=== PATIENT | female | born 1995 | race Caucasian/White ===

== ENCOUNTER 2024-05-02 17:40 | Emergency (ER) | payer SELFPAY ==
--- NOTE | ~2024-05-02 | CT_ITS ---
EXAMINATION: CT abdomen pelvis w con DATE: 05/02/2024 20:31 INDICATION: RUQ abd pain, n/v TECHNIQUE: Computed tomography (CT) of the abdomen and pelvis was performed with 100 mL Omnipaque-350 intravenous contrast. Automated exposure control and iterative reconstruction technique were employe d. The dose-length product was 185.11 mGy-cm. COMPARISON: Ultrasound abdomen, same date. FINDINGS: Lower thorax: Unremarkable Liver: Normal. Biliary/Gallbladder: Gallbladder is normal. No bile duct dilation. Pancreas: No mass or duct dilation. Spleen: Normal. Adrenals:No mass. Kidneys: No suspicious mass, obstructing stone, or hydronephrosis. GI tract: Mild distal esophageal and gastric wall edema No small or large bowel dilation. The appendi x is not confidently visualized and is presumably surgically absent Mesentery/Peritoneum: No ascites, mass, or free air. Retroperitoneum: No mass. Pelvis: Normal urinary bladder, bilateral ovaries, and uterus. Small volume deep pelvic fluid, within physiologic range. Soft Tissues: Soft tissues and body wall unremarkable. Bones: No acute osseous finding. IMPRESSION: Mild esophagitis/gastritis. Otherwise, no acute abdominopelvic process detected. Reviewed, dictated and finalized at location K.
--- NOTE | ~2024-05-02 | US_ITS ---
EXAMINATION: US abdomen limited DATE: 05/02/2024 20:52 INDICATION: RUQ pain, Positive Holland TECHNIQUE: Multiple grayscale and Doppler ultrasound images of limited portions of the abdomen were o btained. COMPARISON: CT abdomen pelvis, same date. FINDINGS: The visualized portions of the pancreas are normal. The liver is normal with normal echogen icity and echotexture. No surface nodularity. Normal hepatopetal flow in the main portal vein. The ga llbladder is normal size with no abnormal wall thickening, or pericholecystic fluid. Nonmobile, nonva scular, nonshadowing, round 4 mm echogenicity along the gallbladder wall. The common bile duct measur es 4 mm. There was no sonographic Holland sign. IMPRESSION: 4 mm intraluminal echogenicity in the gallbladder may represent adherent stone, sludge ball, or gallb ladder polyp. Positive sonographic Holland sign in the setting of an otherwise unremarkable appearing gallbladder. Reviewed, dictated and finalized at location K. IMPRESSION: 4 mm intraluminal echogenicity in the gallbladder may represent adherent stone, sludge ball, or gallbladder polyp. Positive sonographic Holland sign in the setting of an otherwise unremarkable ap pearing gallbladder.
--- NOTE | 2024-05-02 18:24 | ED.ABDPAIN ---
HPI - Abdominal Pain General Chief Complaint: Abdominal Pain <HELEN No Last Filed: 05/02/24 18:39> Stated Complaint: ABDOMINAL PAIN <HELEN No Last Filed: 05/02/24 18:39> Time Seen by Provider: 05/02/24 18:24 <HELEN No Last Filed: 05/02/24 18:39> Focused HPI: Patient is a 28 y/o female who presents to the ED with c/o upper abdominal pain. Patient reports pain began this morning, was mild at first, more severe over past couple hours. Present in epigastric region and RUQ. Worse with movement. Feels slightly better with sitting with her knees up to her chest. Patient has not taken anything for the pain. Reports N/V, urinary frequency. Denies dysuria, hematuria, diarrhea, constipation, fevers. Hx of kidney stone, but states current pain does not feel similar. Hx of liver failure 2 years ago, r/t alcoholism. Seen at [facility] at that time. Patient no longer drinks. Does not currently follow with GI. Denies hx of pancreatitis. GENERAL: Well-appearing, thin, and in no acute distress. HEAD: Normocephalic, atraumatic. CHEST: Clear to auscultation. ?No respiratory distress. HEART: Regular rate and rhythm.? ABD: TTP in epigastric region and RUQ. No rebound. NEURO: ?Alert and oriented x3. Patient screened in triage and initial orders placed.? ?Additional care and disposition to be based upon?diagnostic testing and treatment. <HELEN No Last Filed: 05/02/24 18:39> Source: patient <HELEN No Last Filed: 05/02/24 18:39> Mode of arrival: ambulatory <HELEN No Last Filed: 05/02/24 18:39> Limitations: no limitations <HELEN No Last Filed: 05/02/24 18:39> Related Data Allergies/Adverse Reactions: Allergies Allergy/AdvReac Type Severity Reaction Status Date / Time Penicillins Allergy Unknown Verified 05/02/24 19:50 <Ashley Tavarez PA-C - Last Filed: 05/02/24 18:39> Review of Systems Review of Systems: All systems as dictated in HPI <Ben Lares PA-C - Last Filed: 05/03/24 00:34> Exam Narrative: GENERAL: Well-appearing, well-nourished, and in no acute distress. HEAD: Normocephalic, atraumatic. EYES: PERRLA and EOMI. ENT: Nares clear, no rhinorrhea or epistaxis. Mucous membranes moist. Oropharynx without tonsillar hypertrophy exudate or other lesions. NECK: Supple. No adenopathy or masses. CHEST: No respiratory distress. Clear to auscultation. No wheezes rales or rhonchi HEART: Regular rate and rhythm. No murmur heard. Normal peripheral pulses. ABDOMEN: Holland sign positive. Negative flank tenderness bilaterally. Soft, otherwise nontender, nondistended, normal active bowel sounds. MSK: Normal range of motion. No edema. SKIN: Warm, dry, no rash. NEURO: Alert and oriented x4. No focal deficits. PSYCH: Normal mood and affect. <Ben Lares PA-C - Last Filed: 05/03/24 00:34> Course COUNTER MAKER/PA Physician Supervision Patient's HPI, Exam, and MDM were reviewed and I agreed with the workup and disposition done in the emergency department by the MLP. I was available for consultation, but was not directly involved with patient's care nor did I evaluate the patient. <Crow Sadler MD - Last Filed: 05/03/24 07:57> Reevaluation(s) Reevaluation #1: Re-evaluation after 2nd dose of Dilaudid. Patient is feeling improved overall. She feels ready to go home. <Ben Lares PA-C - Last Filed: 05/03/24 00:34> Date: 05/02/24 <Ben Lares PA-C - Last Filed: 05/03/24 00:34> Time: 22:38 <Ben Lares PA-C - Last Filed: 05/03/24 00:34> Consultations Consultation #1: Spoke with Dr. Herring (general surgery); he recommends to continue to give pain medications to get patient's pain under control and would recommend discharge home. States that if we are unable to achieve pain control, transfer to another facility as we do
[2024-05-02 18:35] VITALS: BP 135/98; PULSE 78; RESP 15; TEMP 36.4; O2SAT 100
[2024-05-02 18:48] LABS: Basophils Percent Auto 0.5 % (0.2-1.2); Eosinophils Absolute Auto 0.1 K/mm3 (0-0.3); Eosinophils Percent Auto 2.5 % (0-4.4); Hematocrit 39.9 % (37.0-47.0); Hemoglobin 13.7 g/dL (12.0-15.0); Immature Granulocyte Absolute 0.01 K/mm3 (0.00-0.031); Immature Granulocyte Percent A 0.2 % (0-0.5); Lymphocytes Absolute Auto 1.18 K/mm3 (0.9-3.2); Lymphocytes Percent Auto 26.9 % (18.3-44.2); Mean Corpuscular HGB Conc 34.3 g/dl (32-36); Mean Corpuscular Hemoglobin 34.6 pg (26-34); Mean Corpuscular Volume 100.8 fl (80-100); Mean Platelet Volume 9.8 fl (7.4-10.4); Monocytes Absolute Auto 0.5 K/mm3 (0.1-0.6); Monocytes Percent Auto 11.2 % (2.6-8.5); Neutrophils Absolute Auto 2.6 K/mm3 (1.3-6.7); Neutrophils Percent Auto 58.7 % (45.5-73.1); Platelet Count Result 174 k/mm3 (150-375); Red Blood Count 3.96 M/mm3 (4.2-5.4); Red Cell Distribution Width 11.9 % (11.5-14.5); White Blood Count 4.4 K/mm3 (4.5-10.0)
[2024-05-02 18:59] LABS: Alanine Aminotransferase 33 U/L (6-35); Albumin Level 4.7 g/dL (3.5-5.1); Alkaline Phosphatase 48 U/L (38-126); Anion Gap 6 mmol/L (4-12); Aspartate Amino Transferase 45 U/L (14-36); Bilirubin,Total 0.4 mg/dL (0.2-1.3); Blood Urea Nitrogen 11 mg/dL (7-17); Calcium 9.8 mg/dL (8.4-10.2); Carbon Dioxide 31 mmol/L (22-30); Chloride 100 mmol/L (98-107); Estimated CRCL calculation 79 ml/min; Estimated Glomerular Filt Rate > 60; Glucose 99 mg/dL (65-110); Lipase 81 U/L (23-300); Potassium 4.2 mmol/L (3.4-5.0); Sodium 137 mmol/L (137-145)
[2024-05-02] MEDS: Please add drug allergy info to patient profile. 1 EACH XX (19:49)
[2024-05-02] MEDS: ONDANSETRON INJ 4 MG/2 ML VIAL IV PUSH (19:49)
[2024-05-02] MEDS: SODIUM CHLORIDE 0.9% IV 1,000 ML 999 ML IV CONT (19:49)
[2024-05-02 20:04] LABS: Add Urine Microscopic? YES; Appearance Urine Turbid (Clear); Bacteria Urine None Seen /hpf; Bilirubin Urine Negative (Negative); Blood Urine Negative (Negative); Color Urine Yellow (Yellow); Glucose Urine UA Negative (Negative); Ketones Urine Negative (Negative); Leukocyte Esterase Ur Negative LEU/UL (Negative); Nitrate Urine Negative (Negative); Non Pathogenic Casts 0-2; Protein Urine Negative (Negative); RBC Urine 0-2 /hpf (0-2); Squamous Epithelial Cell Urine None Seen /hpf (Few); Urobilinogen Urine 0.2 mg/dL (<2.0); WBC Urine 0-5 /hpf (0-3)
[2024-05-02] MEDS: HYDROmorphone HCL INJ (*CRX) 1 MG/ML SYR 0.5 MG IV PUSH ×2 (20:05→21:31)
[2024-05-02 20:09] LABS: Pregnancy On Board Control Positive; Urine Pregnancy Test Negative
[2024-05-02] MEDS: FAMOTIDINE 20 MG/2 ML VIAL IV PUSH (21:29)
[2024-05-02] MEDS: PANTOPRAZOLE SODIUM IV 40 MG VIAL IV PUSH (21:29)
[2024-05-02 22:49] VITALS: BP 133/88; PULSE 78; RESP 18; O2SAT 100
== END 2024-05-02 22:50 | disposition home or self-care (01) ==
PROVIDERS: Physician Assistant; Emergency Provider Physician Assistant
DX: R10.11 Right upper quadrant pain (principal); R93.2 Abnormal findings on diagnostic imaging of liver and biliary tract; K20.90 Esophagitis, unspecified without bleeding; K29.70 Gastritis, unspecified, without bleeding
CPT/HCPCS: 36415; 74177; 76705; 80053; 81001; 81025; 83690; 85025; 96361; 96374; 96375; 96376; 99284; J1170; J2405; J2470; J7030; Q9967